=== PATIENT | female | born 1990 | race African-American/Black ===

== ENCOUNTER 2018-05-29 11:04 | Day surgery (SDC) | payer OTHER, MEDICAID ==
[2018-05-29] MEDS ORDERED: PROVENTIL HFA 6.7GM INHALER (15:14)
[2018-05-29] MEDS ORDERED: MIDAZOLAM 1 MG/ML 2 ML INJ (15:27)
[2018-05-29] MEDS ORDERED: SUCCINYLCHOLINE CHLORIDE 100 MG/5 ML SYG IV (15:28)
[2018-05-29] MEDS ORDERED: LIDOCAINE 2% (SDV) 5 ML INJ (15:28)
[2018-05-29] MEDS ORDERED: PROPOFOL 20 ML ×2 (15:28→15:43)
[2018-05-29] MEDS ORDERED: FENTAnyl 50 MCG/ML VIAL (15:29)
[2018-05-29] MEDS ORDERED: MEPERIDINE 25 MG INJ IV (15:30)
[2018-05-29] MEDS ORDERED: HYDROmorphONE 1 MG/5 ML IV SYRINGE IV ×2 (15:30)
[2018-05-29] MEDS ORDERED: OXYCODONE/ACETAMINOPHEN (5/325) TAB PO (15:30)
[2018-05-29] MEDS ORDERED: FENTAnyl 50 MCG/ML VIAL IV (15:30)
[2018-05-29] MEDS ORDERED: DIPHENHYDRAMINE 50 MG INJ IV (15:30)
[2018-05-29] MEDS ORDERED: ONDANSETRON 4 MG INJ IV (15:30)
[2018-05-29] MEDS ORDERED: hydrALAzine 20 MG INJ IV (15:30)
[2018-05-29] MEDS ORDERED: LABETALOL HCL 20MG INJ IV (15:30)
[2018-05-29] MEDS ORDERED: PHENYLephrine (100 MCG/ML) 5ML SYG (15:37)
[2018-05-29] MEDS ORDERED: EPINEPHrine 0.1 MG/ML SYG (15:43)
[2018-05-29] MEDS ORDERED: ROCURONIUM 50 MG INJ (15:46)
[2018-05-29] MEDS ORDERED: FAMOTIDINE 20 MG INJ (15:47)
[2018-05-29] MEDS ORDERED: DEXAMETHASONE 4 MG/ML 5 ML INJ (15:47)
[2018-05-29] MEDS ORDERED: ONDANSETRON 4 MG INJ (15:47)
[2018-05-29] MEDS ORDERED: GLYCOPYRROLATE 0.4 MG INJ ×2 (15:50→16:00)
[2018-05-29] MEDS ORDERED: NEOSTIGMINE 3 MG/3 ML SYRINGE ×2 (15:50→16:00)
[2018-05-29] MEDS ORDERED: ALBUTEROL 0.083% (NEB) 2.5 MG/3 ML AMP HHN (16:30)
[2018-05-29] MEDS: HYDROmorphONE 1 MG/5 ML IV SYRINGE IV (16:54)
[2018-05-30] MEDS ORDERED: INFLUENZA VIRUS VACCINE 0.5 ML (DISPENSING) IM* (09:00)
== END 2018-05-29 19:46 | disposition home or self-care (01) ==
LOC: SDS 11:04
DX: J35.2 Hypertrophy of adenoids (principal); Q30.0 Choanal atresia
CPT/HCPCS: 42831; 84703; 88304